=== PATIENT | male | born 1945 | race Caucasian/White ===

== ENCOUNTER 2020-03-27 16:05 | Outpatient (CLI) | payer MEDICARE ==
[2020-03-27] MEDS ORDERED: OMNIPAQUE 350 MG/ML, 100ML BOTTLE ONE (18:03)
== END 2020-03-27 23:59 | disposition home or self-care (01) ==
LOC: RAD 16:05
PROVIDERS: ATTEND Family Medicine
DX: K57.32 Diverticulitis of large intestine without perforation or abscess without bleeding (principal); K76.0 Fatty (change of) liver, not elsewhere classified; K76.89 Other specified diseases of liver; I70.0 Atherosclerosis of aorta
CPT/HCPCS: 36415; 74177; 82565; Q9967